=== PATIENT | male | born 1945 | race Caucasian/White ===

== ENCOUNTER → 2017-09-07 | Day surgery (SDC) | payer MEDICARE ==
[~2017-09-07] MED LIST: BELLADONNA ALKALOIDS/OPIUM 60 MG SUPP RECTAL ONE; GENTAMICIN SULFATE 80 MG/2 ML VIAL ONE; LACTATED RINGER'S 1000 ML INJ 1,000 ML ONE; MIDAZOLAM HCL 2 MG/2 ML VIAL ONE; ONDANSETRON HCL 4 MG/2 ML VIAL IV PUSH ONE; PROPOFOL 200 MG/20 ML AMP IV ONE; STERILE WATER FOR INJECTION 20 ML VIAL ONE; ceFAZolin INJ 1,000 MG VIAL ONE
--- NOTE | 2017-09-07 09:45 | TN ---
cc: Richard Tillman MD DATE OF SURGERY: 09/07/2017 DATE OF PROCEDURE: 09/07/2017 PREOPERATIVE DIAGNOSES: 1. Benign prostatic hyperplasia. 2. Chronic urinary retention. 3. History of bladder calculi. POSTOPERATIVE DIAGNOSES: 1. Benign prostatic hyperplasia. 2. Chronic urinary retention. 3. History of bladder calculi. PROCEDURE PERFORMED: Transurethral resection of the prostate (TURP) (CPT code 42285). INDICATIONS FOR PROCEDURE: Mr. Obrien is a 72-year-old gentleman who has previously had a history of large bladder calculi and due to his outlet obstruction and chronic retention, presents now for definitive TURP. FINDINGS: Normal urethra with the exception of a grade I bulbomembranous urethral stricture. 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 The trigone shows ureteral orifice normal size, shape and position, effluxing clear urine. There is significant trabeculation and small diverticula and cellules within the bladder itself. No stone, debris or tumors or suspicious mucosa identified. DESCRIPTION OF PROCEDURE: The procedure as well as risks and benefits were explained to the patient and informed consent was obtained. The patient was taken to the major operative theater, where he was placed in supine position. The patient was identified as well as the operative site. A universal timeout was performed in the standard fashion. At this time, general anesthetic and prophylactic intravenous antibiotics consisting of gentamicin 80 mg and Ancef 1 gram was administered. After adequate anesthetic, he was placed in the low dorsal lithotomy position, prepped and draped in the usual sterile fashion. At this time, a 22.5-[place]izen [place] cystoscope with a 30-degree lens was inserted into the urethra and bladder without difficulty. The bladder was systematically surveyed with the above findings. The cystoscope was removed and a 27-Citizen [place] Toro resectoscope with a right angle bladder loop was placed under direct vision. Using normal saline and the Gyrus bipolar system, transurethral resection of the prostate was performed in the standard fashion, first at the bladder neck circumferentially and then more distally. Care was taken not to resect proximal to the distal verumontanum, which was kept in vision throughout the case. After a wide channel was opened, an Tiempy evacuator was used to evacuate all the chips, which were sent for final pathological evaluation. After confirming hemostasis and no incidental damage to the bladder or the sphincter, the resectoscope was removed and pressure was placed on the dome of the bladder. The patient had an excellent stream. A 20-Citizen [place] 3-way hematuria catheter was placed without difficulty with 30 mL of sterile water insufflated into the balloon and the irrigation port capped. The patient was also given a belladonna and opioid suppository. The patient was then placed back in the supine position, emerged from anesthetic without difficulty and transferred to the recovery room in stable condition to be discharged home when criteria is met. There are no obvious complications. MD SALEEM Lomeli/KIRBY , 09:27 AM , 09:44 AM
== END | disposition home or self-care (01) ==
LOC: ESDC 06:00
PROVIDERS: ATTEND Urology
DX: N40.1 Benign prostatic hyperplasia with lower urinary tract symptoms (principal); R33.9 Retention of urine, unspecified; Z87.442 Personal history of urinary calculi; E11.9 Type 2 diabetes mellitus without complications; Z79.4 Long term (current) use of insulin
CPT/HCPCS: 00914; 52601; 82948; 88305; J0690; J1580; J2250; J2405; J3010; J7120